=== PATIENT | male | born 1960 | race Caucasian/White ===

== ENCOUNTER 2017-02-11 19:14 | Emergency (ER) | payer OTHER ==
[2017-02-11 20:28] LABS: BASOPHIL 0.6 % (0-2); EOSINOPHIL 3.2 % (0-5); HCT 45.6 % (42.0-52.0); HGB 15.4 g/dl (13.2-18.0); LYMPHOCYTE 34.8 % (15-48); MCH 32.4 pg (25.0-31.0); MCHC 33.8 g/dL (32.0-36.0); MCV 95.8 fL (78.0-100.0); MONOCYTE 7.2 % (0-12); MPV 9.4 fL (6.0-9.5); NEUTROPHIL 54.2 % (41-80); PLT 210 K/uL (150-400); RBC 4.76 M/uL (4.70-6.00); RDW 13.8 % (11.5-14.0); WBC 8.3 K/uL (4.0-10.5)
[2017-02-11 20:38] LABS: ALBUMIN 4.1 g/dL (3.5-5.0); BILIRUBIN - TOTAL 0.3 mg/dL (0.1-1.0); CREATININE 0.9 mg/dL (0.7-1.2); GLOBULIN (CALCULATION) 2.9 g/dL (2.2-4.2); POTASSIUM 4.2 mmol/L (3.5-5.1)
[2017-02-11 23:23] LABS: BILIRUBIN NEGATIVE (NEGATIVE); BLOOD NEGATIVE Ery/uL (NEGATIVE); CLARITY CLEAR (CLEAR); COLOR YELLOW (YELLOW); GLUCOSE (U) NORMAL (NORMAL); KETONE (U) NEGATIVE (NEGATIVE); LEUKOCYTES 1+ Leu/uL (NEGATIVE); NITRITE NEGATIVE (NEGATIVE); PROTEIN NEGATIVE (NEGATIVE); UROBILINOGEN 0.2 mg/dL (0.2-1.0)
[2017-02-11 23:27] LABS: BACTERIA TRACE; URINARY WBC 20-50
[2017-02-11 23:28] LABS: MUCOUS TRACE
== END 2017-02-11 23:46 | disposition home or self-care (01) ==
LOC: FER 19:14
PROVIDERS: Emergency Medicine Emergency Medical Services
DX: R10.9 Unspecified abdominal pain (principal); R30.0 Dysuria; E86.9 Volume depletion, unspecified; R82.90 Unspecified abnormal findings in urine; F17.210 Nicotine dependence, cigarettes, uncomplicated; Z87.442 Personal history of urinary calculi; Z98.890 Other specified postprocedural states
CPT/HCPCS: 36415; 80053; 81001; 85025; 87076; 87088; 87186; J1170; J1885; J2405